=== PATIENT | female | born 1990 | race American Indian/Alaskan Native ===

== ENCOUNTER 2018-12-09 21:17 | Emergency (ER) | payer OTHER ==
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
[2018-12-09 21:50] VITALS: BP 122/49
[2018-12-10] MEDS ORDERED: TYLENOL PO ONE (01:16)
== END 2018-12-10 07:44 | disposition left against medical advice (07) ==
LOC: ED 21:17
DX: M54.5 Low back pain (principal); Z53.21 Procedure and treatment not carried out due to patient leaving prior to being seen by health care provider